=== PATIENT | male | born 1985 ===

== ENCOUNTER 2024-04-19 21:59 | Emergency (ER) | payer BC, OTHER ==
[2024-04-19 22:12] VITALS: PULSE 101
[2024-04-19] MEDS: Diphtheria,Pertussis(Acell),Tetanus Vaccine 0.5 ML Syringe IM ONE (23:47)
[2024-04-20] MEDS: Cephalexin 500 MG Cap PO ONE (00:17)
[2024-04-20] MEDS: Lidocaine 1% 10 ML MDV ONE (00:25)
[2024-04-20] MEDS: Lidocaine 1% 50 ML MDV INJECT ONE (00:57)
[2024-04-20 01:38] VITALS: BP 145/90
== END 2024-04-20 01:20 | disposition home or self-care (01) ==
LOC: JD.ED 21:59
DX: S61.216A Laceration without foreign body of right little finger without damage to nail, initial encounter (principal); I10 Essential (primary) hypertension; E66.9 Obesity, unspecified; Z68.34 Body mass index [BMI] 34.0-34.9, adult; Z90.49 Acquired absence of other specified parts of digestive tract; Z79.899 Other long term (current) drug therapy; W26.0XXA Contact with knife, initial encounter; Z23 Encounter for immunization
CPT/HCPCS: 12001; 73140; 90471; 90715; 99283; A9270; J2003